=== PATIENT | female | born 1990 | race Caucasian/White ===

== ENCOUNTER 2017-04-11 19:30 | Emergency (ER) | payer OTHER ==
[2017-04-11 21:01] LABS: BASOPHIL % 1.1 % (0-2); PLATELET COUNT 258 x10^3mcL (130-400); RED CELL DISTRIBUTION WIDTH 13.6 % (11.5-14.5)
[2017-04-11 21:03] LABS: UA SPECIFIC GRAVITY <=1.005 (1.005-1.035); microscopic required? YES; urine erythrocyte 1+ (NEGATIVE)
[2017-04-11 21:30] LABS: CALCIUM 8.7 mg/dL (8.5-10.1); CARBON DIOXIDE 26.1 mmol/L (21-32); CHLORIDE SERUM 106 mmol/L (98-107); CREATININE SERUM 0.7 mg/dL (0.6-1.0); GFR1 > 60 mL/min; GLUCOSE SERUM 91 mg/dL (74-106); POTASSIUM SERUM 3.3 mmol/L (3.5-5.1); SODIUM SERUM 141 mmol/L (136-145)
[2017-04-11 21:36] LABS: ALBUMIN 4.2 g/dL (3.4-5.0); ALKALINE PHOSPHATASE 48 U/L (46-116); ALT/SGPT 16 U/L (14-59); AMYLASE 73 U/L (25-115); AST/SGOT 16 U/L (15-37); BILIRUBIN TOTAL 0.28 mg/dL (0.20-1.00); LIPASE 166 IU/L (73-393); TOTAL PROTEIN, SERUM 7.7 g/dL (6.4-8.2)
[2017-04-11 23:08] VITALS: BP 123/69
== END 2017-04-11 23:08 | disposition home or self-care (01) ==
LOC: ED 19:30
PROVIDERS: Specialist
DX: R10.31 Right lower quadrant pain (principal); R11.0 Nausea; Z88.5 Allergy status to narcotic agent
CPT/HCPCS: 83880; J1885

== ENCOUNTER 2017-04-19 16:41 | Emergency (ER) | payer OTHER ==
[~2017-04-19] VITALS: Ht 162.6 cm; Wt 54.6 kg
[2017-04-19 16:50] VITALS: BP 119/78
== END 2017-04-19 19:20 | disposition left against medical advice (07) ==
LOC: ED 16:41
DX: Z53.21 Procedure and treatment not carried out due to patient leaving prior to being seen by health care provider (principal)

== ENCOUNTER 2017-06-22 14:24 | Emergency (ER) | payer OTHER ==
[~2017-06-22] VITALS: Ht 162.6 cm; Wt 52.6 kg
[2017-06-22 14:33] VITALS: Ht 162.6 cm; Wt 52.6 kg
[2017-06-22 17:03] VITALS: BP 110/64
== END 2017-06-22 17:03 | disposition home or self-care (01) ==
LOC: ED 14:24
DX: J03.90 Acute tonsillitis, unspecified (principal); Z88.5 Allergy status to narcotic agent
CPT/HCPCS: J0696

== ENCOUNTER 2017-09-06 14:28 | Emergency (ER) | payer OTHER ==
[~2017-09-06] VITALS: Ht 162.6 cm; Wt 53.3 kg
[2017-09-06 14:31] VITALS: Ht 162.6 cm; Wt 53.3 kg
[2017-09-06 15:23] LABS: BASOPHIL % 0.5 % (0-2); PLATELET COUNT 228 x10^3mcL (130-400); RED CELL DISTRIBUTION WIDTH 13.5 % (11.5-14.5)
[2017-09-06 15:33] LABS: AMPHETAMINE QUAL UR NONE DETECTED (NEG <=1000)
[2017-09-06 15:50] LABS: CALCIUM 8.9 mg/dL (8.5-10.1); CARBON DIOXIDE 28.1 mmol/L (21-32); CHLORIDE SERUM 104 mmol/L (98-107); CREATININE SERUM 0.8 mg/dL (0.6-1.0); GFR1 > 60 mL/min; GLUCOSE SERUM 101 mg/dL (74-106); POTASSIUM SERUM 3.5 mmol/L (3.5-5.1); SODIUM SERUM 141 mmol/L (136-145)
[2017-09-06 15:58] LABS: ALBUMIN 4.2 g/dL (3.4-5.0); ALKALINE PHOSPHATASE 51 U/L (46-116); ALT/SGPT 16 U/L (14-59); AST/SGOT 13 U/L (15-37); TOTAL PROTEIN, SERUM 7.7 g/dL (6.4-8.2)
[2017-09-06 16:32] VITALS: BP 124/85
== END 2017-09-06 16:32 | disposition short-term general hospital (02) ==
LOC: ED 14:28
PROVIDERS: Emergency Medicine
DX: R20.2 Paresthesia of skin (principal)
CPT/HCPCS: 83880; Q0092

== ENCOUNTER 2017-11-03 18:50 | Emergency (ER) | payer OTHER ==
[~2017-11-03] VITALS: Ht 162.6 cm; Wt 52.6 kg
[2017-11-03 19:10] VITALS: Ht 162.6 cm; Wt 52.6 kg
[2017-11-03 19:34] LABS: BASOPHIL % 0.4 % (0-2); PLATELET COUNT 204 x10^3mcL (130-400); RED CELL DISTRIBUTION WIDTH 13.5 % (11.5-14.5)
[2017-11-03 19:45] LABS: CALCIUM 8.9 mg/dL (8.5-10.1); CARBON DIOXIDE 25.5 mmol/L (21-32); CHLORIDE SERUM 107 mmol/L (98-107); CREATININE SERUM 0.8 mg/dL (0.6-1.0); GFR1 > 60 mL/min; GLUCOSE SERUM 85 mg/dL (74-106); POTASSIUM SERUM 3.7 mmol/L (3.5-5.1); SODIUM SERUM 140 mmol/L (136-145)
[2017-11-03 19:50] LABS: ALBUMIN 4.2 g/dL (3.4-5.0); ALKALINE PHOSPHATASE 69 U/L (46-116); ALT/SGPT 11 U/L (14-59); AMYLASE 69 U/L (25-115); AST/SGOT 6 U/L (15-37); BILIRUBIN TOTAL 0.31 mg/dL (0.20-1.00); LIPASE 172 IU/L (73-393); TOTAL PROTEIN, SERUM 7.2 g/dL (6.4-8.2)
[2017-11-03 20:30] LABS: microscopic required? YES; urine erythrocyte 3+ (NEGATIVE)
[2017-11-03 22:57] VITALS: BP 110/74
== END 2017-11-03 22:57 | disposition home or self-care (01) ==
LOC: ED 18:50
PROVIDERS: Specialist
DX: R10.13 Epigastric pain (principal); R11.0 Nausea
CPT/HCPCS: 83880; J2405; J3010; J7030; Q0092